=== PATIENT | male | born 1960 | race Caucasian/White ===

== ENCOUNTER 2025-05-09 13:30 | Outpatient (AMB) | payer BC, SELFPAY ==
--- OUTSIDE RECORDS SUMMARY | 2025-01-30 12:00 | XMS_ITS ---
Author Organization [facility] Address [address] [place], [place] [id number] Care Team Providers Care Automatic Data Processing Planner Name Role Phone KARICLEOPATRA FAUST Primary Care Provider [phone] REASON FOR VISIT Next Steps Encounters Encounter Location Date Provider Diagnosis [facility] [address] [place] [address] 01/30/2025 CLEOPATRA PIERCE Forgetfulness R68.89 and Word finding difficulty R47.89 ASSESSMENTS Encounter Date Diagnosis Assessment Notes Treatment Notes Treatment Clinical Notes Section Notes 01/30/2025 Forgetfulness (ICD-10 - R68.89) 01/30/2025 Word finding difficulty (ICD-10 - R47.89) PLAN OF TREATMENT Next Appt Details Provider Name:CLEOPATRA KEENANAN, 05/14/2025 10:40:00 AM, [address] [place], [address],
--- OUTSIDE RECORDS SUMMARY | 2025-02-23 07:58 | XMS_ITS ---
Author Organization [facility] Address [address] [place], [place] [phone] Care Team Providers Care Catalyst Recovery Operator Name Role Phone KARI CLEOPATRA Primary Care Provider REASON FOR VISIT Medication Request MEDICATIONS Medication SIG (Take, Route, Frequency, Duration) Notes Start Date End Date Status QUEtiapine Fumarate 25 MG 1 tablet at be dtime Orally Once a day for 30 day(s) 02/23/2025 Active PROBLEMS Problem Type ICD Code Onset Dates Problem Status W/U Status Risk SNOMED Code Notes Problem Other insomnia (G47.09) Active confirmed [id number] Encounters Encounter Location Date Provider Diagnosis [address] [address] 02/23/2025 CLEOPATRA PIERCE Other insomnia G47.0 9 and Irritability R45.4 ASSESSMENTS Encounter Date Diagnosis Assessment Notes Treatment Notes Treatment Clinical Notes Section Notes 02/23/2025 Other insomnia (ICD-10 - G47.09) 02/23/2025 Irritability (ICD-10 - R45.4) PLAN OF TREATMENT Medication Medication Name Sig Start Date Stop Date Notes QUEtiapine Fumarate 25 MG 1 tablet at be dtime Orally Once a day for 30 day(s) 02/23/2025 Next Appt Details Provider Name:CLEOPATRA PIERCE, 05/14/2025 10:40:00 AM, [address] [place] [address], [phone],
--- OUTSIDE RECORDS SUMMARY | 2025-02-27 03:40 | XMS_ITS ---
Author Organization [facility] Address [address] [place], [place] [phone] Care Team Providers Care Silvering Department Supervisor Name Role Phone KARI, CLEOPATRA Primary Care Provider [phone] ALLERGIES No Known Allergies REASON FOR VISIT [...] Notes Problem Cerebrovascular disease (I67.9) Active confirmed 06328875 VITAL SIGNS Height 65 in 02/27/2025 Weight 176 lbs 02/27/2025 Blood pressure systolic 172 mm Hg 02/28/20 25 Blood pressure diastolic 90 mm Hg 025 BMI 29.28 kg/m2 02/27/2025 Encounters Encounter Location Date Provider Diagnosis [facility] [address] [place] [address] 02/27/2025 CLEOPATRA PIERCE Cerebrovascular dise ase I67.9 [...] Details Follow Up: 4 Weeks, Reason: Provider Name:CLEOPATRA KARI, 05/14/2025 10:40:00 AM, [address] [place], [address], History and Physical Notes * HPI (History [...]
--- OUTSIDE RECORDS SUMMARY | 2025-03-23 07:34 | XMS_ITS ---
Author Organization [facility] Address [address] [place] [phone] Care Team Providers Care Knot Bumper Name Role Phone CLEOPATRA PIERCE Primary Care Provider REASON FOR VISIT Appt RS'd Encounters Encounter Location Date Provider Diagnosis [facility] [address] [place] [address] 03/23/2025 CLEOPATRA PIERCE PLAN OF TREATMENT Next Appt Details Provider Name:CLEOPATRA PIERCE, 05/14/2025 10:40:00 AM, [address] [place], [address],
--- OUTSIDE RECORDS SUMMARY | 2025-03-27 03:40 | XMS_ITS ---
Author Organization [facility] Address [address] [place] [phone] Care Team Providers Care Special Effects Designer Name Role Phone CLEOPATRA PIERCE Primary Care Provider REASON FOR VISIT 36/4wk f/u Encounters Encounter Location Date Provider Diagnosis [address] [address] 03/27/2025 CLEOPATRA PIERCE PLAN OF TREATMENT Next Appt Details Provider Name:CLEOPATRA PIERCE, 05/14/2025 10:40:00 AM, [address] [place], [address],
--- OUTSIDE RECORDS SUMMARY | 2025-04-02 08:16 | XMS_ITS ---
Author Organization [facility] Address [address] [place] [phone] Care Team Providers Care Mill Attendant Name Role Phone CLEOPATRA PIERCE Primary Care Provider REASON FOR VISIT cognitive issues Encounters Encounter Location Date Provider Diagnosis [address] [address] 04/02/2025 CLEOPATRA PIERCE PLAN OF TREATMENT Next Appt Details Provider Name:CLEOPATRA PIERCE, 05/14/2025 10:40:00 AM, [address] [place], [address],
--- OUTSIDE RECORDS SUMMARY | 2025-04-05 09:44 | XMS_ITS ---
Author Organization [facility] Address [address] [place] [phone] Care Team Providers Care Retail Maintenance Technician Name Role Phone CLEOPATRA PIERCE Primary Care Provider [phone] REASON FOR VISIT Requesting Lab Orders/ Swollen Feet Encounters Encounter Location Date Provider Diagnosis [address] [address] 04/05/2025 CLEOPATRA PIERCE PLAN OF TREATMENT Next Appt Details Provider Name:CLEOPATRA PIERCE, 05/14/2025 10:40:00 AM, [address] [place], [address],
--- OUTSIDE RECORDS SUMMARY | 2025-04-09 05:40 | XMS_ITS ---
Author Organization [facility] Address [address] [place], [place] [phone] Care Team Providers Care Entry Level Recruiter Name Role Phone KARI, CLEOPATRA Primary Care Provider [phone] ANABEL LOPEZ Yessenia [phone] ALLERGIES No Known Allergies REASON FOR VISIT [...] Notes Problem Tinnitus, bilateral (H93.13) Active confirmed [id number] Problem Neuropathy (G62.9) Active confirmed 580619487 VITAL SIGNS Height 65 in 04/09/2025 Weight 178.4 lbs 04/09/2025 Blood pressure systolic 134 mm Hg 04/09/20 25 Blood pressure diastolic 84 mm Hg 025 BMI 29.68 kg/m2 04/09/2025 Encounters Encounter Location Date Provider Diagnosis [facility] [address] [place] [address] 04/09/2025 ANABEL JOHN History of sleep apnea [...] eval; [facility] 04/09/2025 Other I [...] as tolerated Tinnitus, bilateral advised to get [facility] ed audiology eval; [facility] Other I am seeing the pee ent under the supervision of the co-signing physician. The physician was available for consultation at the time of the office visit. Next Appt Details Follow Up: prn, Reason: Provider Name:CLEOPATRA PIERCE, 05/14/2025 10:40:00 AM, [address] [place], [address], History and Physical Notes * HPI (History [...]
--- OUTSIDE RECORDS SUMMARY | 2025-04-09 10:16 | XMS_ITS ---
Author Organization [facility] Address [address], [place] [id number] Care Team Providers Care Label Drier Name Role Phone CLEOPATRA PIERCE Primary Care Provider ANABEL LOPEZ [phone] REASON FOR VISIT home sleep study Encounters Encounter Location Date Provider Diagnosis [address] [address] 04/09/2025 ANABEL LOPEZ History of sleep apnea Z86.69 ASSESSMENTS Encounter Date Diagnosis Assessment Notes Treatment Notes Treatment Clinical Notes Section Notes 04/09/2025 History of sleep apnea (ICD-10 - Z86.69) PLAN OF TREATMENT Pending Test Test Name Order Date Sleep Study (Home) 04/09/2025 Next Appt Details Provider Name:CLEOPATRA PIERCE, 05/14/2025 10:40:00 AM, [address] [place] [address], [phone],
--- OUTSIDE RECORDS SUMMARY | 2025-04-10 11:58 | XMS_ITS ---
Author Organization [facility] Address [address] [place] [phone] Care Team Providers Care Chef Saucier Name Role Phone CLEOPATRA PIERCE Primary Care Provider REASON FOR VISIT f/u on letter Encounters Encounter Location Date Provider Diagnosis [facility] [address] [place] [phone] 04/10/2025 CLEOPATRA PIERCE PLAN OF TREATMENT Next Appt Details Provider Name:CLEOPATRA PIERCE, 05/14/2025 10:40:00 AM, [address] [place], [address],
--- NOTE | 2025-05-09 13:54 | MHC.OFFVIS ---
Intake Visit Reasons: Memory Loss/Forgetfullness Medication List - Last Reconciled 05/09/25 by Cody Pete MD amlodipine 5 mg PO DAILY gabapentin 100 mg PO BEDTIME lisinopril 10 mg PO DAILY metoprolol succinate ER 50 mg PO BID quetiapine 25 mg PO DAILY rosuvastatin 20 mg PO DAILY rosuvastatin 10 mg PO DAILY HPI Comments Details: This is a 65-year-old right-handed man who is here accompanied by his and his [id number]. For the last 6-12 months he has had significant cognitive decline and was let go from [employer] where he had worked for 35 years because of errors he had been making for about 6 months. In the last 6 months he has continued to deteriorate cognitively. He runs around the house sometimes watching TV mumbling and humming to himself. He can no longer use the remote control or the cell phone and gets easily confused. He forgets names of family members they are ages in relationship. He takes things out of the cupboard and puts them on the counter and remedies through the Fridge and leaves the kitchen Fridge door open leaves the sink on and sometimes the stove. He thinks that characters on television no real people. He called his sister his mother has increased confusion and sundowning at night and talks about his father that he is going to pick him up. The father passed with 13 years ago. He confuses the past and present. He puts food away in different locations in the house. He used to drink heavily but has cut down and he still smokes. He has a history of hypertension and hyperlipidemia. He also complains of 6 months trouble sleeping because of burning and painful feet. He is scheduled to see a internal control manager and is also scheduled for a sleep study for sleep apnea. The patient is unable to provide any useful information and appears to have fairly advanced dementia. [facility] Medical History (Updated 05/09/25 @ 14:18 by Cody Pete MD) Basal cell carcinoma Heart attack LELAND (obstructive sleep apnea) Hypercholesteremia Type 2 diabetes mellitus Iritis Insomnia Obesity HTN (hypertension) Family History (Updated 05/07/25 @ 14:42 by ELENA Snowden) Father Heart disease Mother Memory loss Sister Seizure Review of Systems Const Details: Significant cognitive decline, confusion disorientation sundowning loss of track of time. Burning sensation in both feet. Musc Reports tingling Neuro Reports confusion, Reports memory loss, Reports tingling and Reports paresthesias Psych Reports confusion and Reports memory loss Physical Exam Const General: confusion Orientation/consciousness: confusion Neuro Other: He is oriented to person only. He knows it is 2024 but was not sure if it was April or May. He does not know the day of the week. He could not accurately tell me what his 2 sons do or their ages. He thinks he is 53 years old instead of 65. He remembers his date of . He is unable to subtract 7 from 100. He is unable to imprint 3 objects successfully usually being able to do only 2. He has some perseveration. His 3 minute recall was 1/3. He is unable to draw a clock face. His MMS score is 15/30 Cranial nerves 2-12 are normal. Muscle tone and strength are normal reflexes hypoactive at the ankles plantar responses flexor. Some subjective sensory blunting in his feet. Gait and balance are normal. General: confusion Assessment & Plan Assessment & Plan (1) Peripheral neuropathy: Code(s): G62.9 - Polyneuropathy, unspecified Category: Medical (2) Alzheimer's disease: Code(s): G30.9 - Alzheimer's disease, unspecified; F02.80 - Dementia in other diseases classified elsewhere, unspecified severity, without behavioral disturbance, psychotic disturbance, mood disturbance, and anxiety Category: Medical Plan NCV lower extremities. EEG, Labs for dementia. Start Donepezil Orders: Orders NE nerve conduction velocity Today G62.9 - Polyneuropathy, unspecified NE electromyogram (EMG) Today G62.9 - Polyneuropathy, unspecified EEG Routine Today F02.80 - Dementia in other diseases classified elsewhere, unspecified severity, without behavioral disturbance, psychotic disturbance, mood disturbance, and anxiety, G30.9 - Alzheimer's disease, unspecified Vitamin B12 and Folate Today F02.80 - Dementia in other diseases classified elsewhere, unspecified severity, without behavioral disturbance, psychotic disturbance, mood disturbance, and anxiety, G30.9 - Alzheimer's disease, unspecified, G62.9 - Polyneuropathy, unspecified Basic Metabolic Panel Today F02.80 - Dementia in other diseases classified elsewhere, unspecified severity, without behavioral disturbance, psychotic disturbance, mood disturbance, and anxiety, G30.9 - Alzheimer's disease, unspecified, G62.9 - Polyneuropathy, unspecified TSH reflex Free T4 Today F02.80 - Dementia in other diseases classified elsewhere, unspecified severity, without behavioral disturbance, psychotic disturbance, mood disturbance, and anxiety, G30.9 - Alzheimer's disease, unspecified, G62.9 - Polyneuropathy, unspecified Medications: New donepezil 5 mg PO DAILY 30 tabs 4RF gabapentin 300 mg PO BEDTIME 30 caps 5RF Coding Level of Care Code New Pt Level 5 (50095) Diagnoses Peripheral neuropathy G62.9 Alzheimer's disease G30.9; F02.80
--- OUTSIDE RECORDS SUMMARY | 2025-05-09 19:09 | XMS_ITS | Clinical Summary ---
[facility] Organization [facility] Address [address] [place] [address] Care Team Providers Care Director Of Managed Care Name Role Phone Unavailable Primary Care Provider Unavailabl e Social History Tobacco Use Types Packs/Day Years Used Date Smoking Tobacco: Never Assessed Sex and Gender Information Value Date Recorded Sex Assigned at Not on file Gender Identity Not on file Sexual Orientation Not on file Plan of Treatment Not on file
--- OUTSIDE RECORDS SUMMARY | 2025-05-09 19:10 | XMS_ITS | Patient Health Record ---
Author Organization [facility] Address [address] [place], [place] [id number] Care Team Providers Care Pega Developer Name Role Phone CLEOPATRA PIERCE Primary Care Provider JOS LIM Unavailable [phone] ANABEL LOPEZ Unavailable [phone] ALLERGIES No Known Allergies REASON FOR REFERRAL Reason 64 yr old male with forgetfullness, word finding difficulty over past 5-6 month Diagnosis 1 Forgetfulness (R68.8 9) Diagnosis 2 Word finding difficu lty (R47.89) Referral Organization [facility] Referring Provider First Name CLEOPATRA Referring Provider Last Name KARI Referring Provider Speciality Internal M edicine Referred Provider GILDA BAILEY Referred Provider Specialty Neurology General Notes Karie SINGH Referrals 02/05/2025 03:40:42 PM > per 01/30/25 encounter > forgetfullness and word find issues x 5-6 mos neurology referral discuss and she will call for appt copy referral mailed , medical referral and notes have also been faxed to [phone], No Insurance Referral is needed as the patient is self pay, Karie SINGH Referrals 02/26/2025 10:41:16 AM > the patient now has BC, ID:[id number], Preferred Provider Organization ([facility]), referral faxed to [facility]OB[facility] at [phone] Referral Priority Urgent MEDICATIONS Medication SIG (Take, Route, Frequency, Duration) [...] day(s) 12/19/2024 Active QUEtiapine Fumarate 25 MG TAKE 1 TABLET BY MOUTH EVERY DAY AT BEDTIME FOR 30 DAYS for 30 Active Metoprolol Tartrate 50 MG 1 tablet with food Orally Twice a day for 30 day(s) 12/19/2024 Active IMMUNIZATIONS Vaccine Route Administration Date Status Comme nts Influenza, Fluzone QUAD, 3+ yrs, IM Intramuscular 04/01/2017 Administered SOCIAL HISTORY Tobacco Use: Social History Observation Description Date Details (start date - stop date) Former Smoker NA - NA Sex Assigned At : Social History Observation Description Sex Assigned At Unknown Smoking Question Answer Notes Are you a: former smoker Section Notes: h/o 1/2-1 ppd x 25 years; qu it 2007 h/o 1/2-1 ppd x 25 years; qu it 2007 h/o 1/2-1 ppd x 25 years; qu it 2007 h/o 1/2-1 ppd x 25 years; qu it 2007 h/o 1/2-1 ppd x 25 years; qu it 2007 h/o 1/2-1 ppd x 25 years; qu it 2007 h/o 1/2-1 ppd x 25 years; qu it 2007 h/o 1/2-1 ppd x 25 years; qu it 2007 h/o 1/2-1 ppd x 25 years; qu it 2007 h/o 1/2-1 ppd x 25 years; qu it 2007 h/o 1/2-1 ppd x 25 years; qu it 2007 h/o 1/2-1 ppd x 25 years; qu it 2007 PROBLEMS Problem Type ICD Code Onset Dates Problem Status W/U Status Risk SNOMED Code Notes Problem Diabetes mellitus type II (250.00) Active confirmed Diabetes me llitus type II (04804899) Problem HTN [Hypertension] (401.9) Active confirmed Essential hypertension (20299292) Problem Ischemic heart disease NOS (414.9) Active confirmed Ischemic heart disease (588995077) Problem Sleep apnea (786.09) Active confirmed S leep apnea (69882431) Problem Transaminasemia (790.4) Active confirmed Temporary loss of memory (finding) (072748250) Problem Hypercholesterolemia (272.0) Active confirmed Hypercholestero lemia (57871187) Problem OBESITY NOS (278.00) Active confirmed O besity (817038118) Problem ELBOW ENTHESOPATHY NOS (726.30) Active confirmed Enthesopathy of elbow region (91905856) Problem Insomnia (G47.00) Active confirmed 193 69996 Problem Vitamin D deficiency (E55.9) Active confirmed 69971871 Problem Hypercholesterolemia (E78.0) Active confirmed 26879110 Problem Nevus (D22.9) Active confirmed 43436458 Problem Obesity (E66.9) Active confirmed 756747 001 Problem Transaminasemia (R74.0) Active confirmed 716619625 Problem Paresthesia (R20.2) Active confirmed 91 712522 Problem LELAND (obstructive sleep apnea) (G47.33) Active confirmed 83466790 Problem Neuropathy (G62.9) Active confirmed 386 012036 Problem Type 2 diabetes mellitus with hyperglycemia (E11.65) Active confirmed 30811588 Problem Other insomnia (G47.09) Active confirmed 515982402 Problem Tinnitus, bilateral (H93.13) Active confirmed 1645341588045 Problem Coronary artery disease involving united [place] coronary artery of united [place] heart without angina pectoris (I25.10) Active confirmed 90030905 Problem Impotence (N52.9) Active confirmed 3978 94487 Problem Ischemic heart disease (I25.9) Active confirmed 574264451 Problem Macrocytosis (D75.89) Active confirmed 917324657 Problem Folic acid deficienc y (E53.8) Active confirmed 840454817 Problem Iritis (H20.9) Active confirmed 2945171 0 Problem SCCA (squamous cell carcinoma) of skin (C44.92) Active confirmed 331874079 Problem Cerebrovascular disease (I67.9) Active confirmed 03058617 Problem Erectile dysfunction , unspecified erectile dysfunction type (N52.9) Active confirmed 460689799 Problem Elevated cholesterol (E78.00) Active confirmed Pure hypercholesterolemia (979510593) Problem Elevated blood pressure reading with diagnosis of hypertension (I10) Active confirmed 24538699 VITAL SIGNS Blood pressure diastolic 84 mm Hg 04/09/2025 Height 65 in 04/09/2025 Blood pressure systolic 134 mm Hg 04/09/2025 Weight 178.4 lbs 04/09/2025 BMI 29.68 kg/m2 04/09/2025 Encounters Encounter Location Date Provider Diagnosis [place] [address] 11/09/[address] [facility] [address] [place], [place] [phone] 11/27/2024 CLEOPATRA PIERCE [place] [address] 11/28/2024 CLEOPATRA PIERCE [place] [address] 11/28/2024 CLEOPATRA PIERCE [place] [address] 12/19/2024 CLEOPATRA PIERCE Cognitive impairment R41.89 ; Screening for deficiency anemia Z13.0 ; Elevated blood pressure reading with diagnosis of hypertension I10 ; Coronary artery disease involving united [place] coronary artery of united [place] heart without angina pectoris I25.10 ; Abnormal EKG R94.31 and Noncompliance Z91.199 [place] [address] 01/01/2025 CLEOPATRA PIERCE [place] [address] 01/02/2025 CLEOPATRA PIERCE [place] [address] 01/25/2025 CLEOPATRA PIERCE [place] [address] 01/30/2025 CLEOPATRA PIERCE Forgetfulness R68.89 and Word finding difficulty R47.89 [address] 02/23/2025 CLEOPATRA PIERCE Other insomnia G47.0 9 and Irritability R45.[address] 02/27/2025 CLEOPATRA PIERCE Cerebrovascular disease I67.9 ; Irritability R45.4 ; Forgetfulness R68.89 and Elevated blood pressure reading with diagnosis of hypertension I10 [place] [phone] 03/23/2025 CLEOPATRA [facility] [address] [place] [address] 03/27/2025 CLEOPATRA PIERCE [facility] [address] [place] [address] 04/02/2025 CLEOPATRA PIERCE [facility] [address] 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 Z86.[address] [place] [address] 04/10/2025 CLEOPATRA PIERCE ASSESSMENTS Encounter Date Diagnosis Assessment Notes Treatment Notes Treatment Clinical Notes Section Notes 02/27/2025 Cerebrovascular disease (ICD-10 - I67.9) quetiapine seemed to help some 01/30/2025 Forgetfulness (ICD-10 - R68.89) 01/30/2025 Word finding difficulty (ICD-10 - R47.89) 12/19/2024 Screening for deficiency anemia (ICD-10 - Z13.0) not on his meds 12/19/2024 Cognitive impairment (ICD-10 - R41.89) not on his meds 04/09/2025 History of sleep apnea (ICD-10 - Z86.69) 04/09/2025 History of sleep apnea (ICD-10 - Z86.69) he hasnt had an updated sleep study which i advised given pts h/o cogntive decline. 04/09/2025 Neuropathy (ICD-10 - G62.9) will try adding gabapentin at bedtime; monitor for side effects/respons e and titrate dose as tolerated 02/27/2025 Irritability (ICD-10 - R45.4) continues quetiapine 1-2 at night and will update me in a week quetiapine seemed to help some 02/23/2025 Other insomnia (ICD-10 - G47.09) 02/23/2025 Irritability (ICD-10 - R45.4) 02/27/2025 Forgetfulness (ICD-10 - R68.89) he will be seein neurologyin Octob quetiapine seemed to help some 12/19/2024 Elevated blood pressure reading with diagnosis of hypertension (ICD-10 - I10) not on his meds 04/09/2025 Tinnitus, bilateral (ICD-10 - H93.13) advised to get updated audiology eval; he is going to go to [facility] to have this done 02/27/2025 Elevated blood pressure reading with diagnosis of hypertension (ICD-10 - I10) continue lisinopril 10mg/d and 2 BPs at [facility] in a week quetiapine seemed to help some 12/19/2024 Coronary artery disease involving united [place] coronary artery of united [place] heart without angina pectoris (ICD-10 - I25.10) not on his meds 12/19/2024 Abnormal EKG (ICD-10 - R94.31) not on his meds 12/19/2024 Noncompliance (ICD-10 - Z91.199) not on his meds 04/09/2025 Other I am seeing the patient under the supervision of the co-signing physician. The physician was available for consultation at the time of the office visit. PLAN OF TREATMENT Pending Test Test Name Order Date Sleep Study (Home) 04/09/2025 TESTOSTERONE,TOTAL(Male greater than 15Y RS (BRL) 05/27/2020 Future Test Test Name Order Date LIPID PROFILE 03/19/2016 GLYCOHEMOGLOBIN (HBA1C) 03/19/2016 FOLATE 03/19/2016 COMP. METABOLIC 03/19/2016 LIPID PROFILE 04/01/2017 GLYCOHEMOGLOBIN (HBA1C) 04/01/2017 COMP. METABOLIC 04/01/2017 Urine Microalbumin(Creat/MALB Ratio) Next Appt Details Provider Name:CLEOPATRA PIERCE, 05/14/2025 10:40:00 AM, [address] [place], [address], Insurance Providers Payer Name Payer Address Payer Phone Subscriber Number Group Number Insured Name Patient Relationship to Insured Coverage Start Date Coverage End Date [facility] [address] [place] [address] [id number] FRANCO HARRISON Self - patient is the insured 5 MEDICAL (GENERAL) HISTORY Medical History History ICD Code hypertension obesity insomnia iritis diabetes mellitus, type 2 hypercholesterolemia [place] [facility] 11/01/11 right SCCA Surgical History Surgery Date(Month/Year) Basal Cell Carcinoma 02/2019 Hospitalization History Reason Date(Month/Year) [facility] Dx: Hypoglycemia Nausea Decreased ap petite 06/17/16 myocardial infarct - [facility] [place] 08/05/2009 chest pain s/p stent x 2 for [facility] 11/01/11
--- OUTSIDE RECORDS SUMMARY | 2025-05-09 19:11 | XMS_ITS | Clinical Summary ---
Author Organization [facility] it Address [address] [place] [address] Care Team Providers Care Postmaster Name Role Phone Unavailable Primary Care Provider Unavailabl e Social History Tobacco Use Types Packs/Day Years Used Date Smoking Tobacco: Never Assessed Sex and Gender Information Value Date Recorded Sex Assigned at Not on file Legal Sex Male 8:26 PM EST Gender Identity Not on file Sexual Orientation Not on file Plan of Treatment Health Maintenance Due Date Last Done Comments Colorectal Cancer Screening: Colonoscopy 1961 DTaP,Tdap,and Td Vaccines (1 - Tdap) 1980 Pneumococcal Vaccine: 50+ Ye ars (1 of 1 - PCV) 2011 Zoster Vaccines (1 of 2) 2011 Cholesterol Screening (Lipid Panel) 08/13/2023 HIV Screening 08/13/2023 Hepatitis C Screening 08/13/2023 Social Influencers of Health Screening 08/13/2023 Depression Screening 07/19/2024 COVID-19 Vaccine (1 - 2023-2 5 season) 2025 Influenza Vaccine (#1) 2025 RSV Immunization Adult Patie nts (1 - 1-dose 75+ series) 2036 HIB Vaccines Aged Out No longer eligi ble based on patient's age to complete this topic HPV Vaccines Aged Out No longer eligi ble based on patient's age to complete this topic Hepatitis A Vaccines Aged Out No long er eligible based on patient's age to complete this topic Hepatitis B Vaccines Aged Out No long er eligible based on patient's age to complete this topic IPV Vaccines Aged Out No longer eligi ble based on patient's age to complete this topic MMR Vaccines Aged Out No longer eligi ble based on patient's age to complete this topic Meningococcal ACWY Vaccine Aged Out N o longer eligible based on patient's age to complete this topic Meningococcal B Vaccine Aged Out No l onger eligible based on patient's age to complete this topic RSV Immunization Patients Un rasheed 20 months Aged Out No longer eligible b ased on patient's age to complete this topic Varicella Vaccines Aged Out No longer eligible based on patient's age to complete this topic
== END 2025-05-09 14:38 | disposition home or self-care (01) ==
PROVIDERS: PCP Internal Medicine; Visit Provider Psychiatry & Neurology Neurology
DX: G62.9 Polyneuropathy, unspecified (principal); G30.9 Alzheimer's disease, unspecified; F02.80 Dementia in other diseases classified elsewhere, unspecified severity, without behavioral disturbance, psychotic disturbance, mood disturbance, and anxiety
CPT/HCPCS: 99204

== ENCOUNTER 2025-05-09 14:45 | Outpatient (REF) | payer BC, SELFPAY ==
[2025-05-09 16:05] LABS: Anion Gap 11 (12-20); Blood Urea Nitrogen 20 mg/dL (9-16); Calcium 9.5 mg/dL (8.4-10.2); Carbon Dioxide 25 mmol/L (22-29); Chloride 109 mmol/L (96-108); Estimated Glomerular Filt Rate 59; Potassium 4.0 mmol/L (3.3-5.1); Sodium 141 mmol/L (135-145)
[2025-05-09 16:42] LABS: Folate 7.3 ng/mL (> or = 4.0); Vitamin B12 307 pg/mL (200-900)
== END 2025-05-09 14:46 | disposition home or self-care (01) ==
LOC: HO.NEURO 14:45
PROVIDERS: PCP Internal Medicine; Visit Provider Psychiatry & Neurology Neurology
DX: G30.9 Alzheimer's disease, unspecified (principal); F02.80 Dementia in other diseases classified elsewhere, unspecified severity, without behavioral disturbance, psychotic disturbance, mood disturbance, and anxiety; G62.9 Polyneuropathy, unspecified
CPT/HCPCS: 36415; 80048; 82607; 82746; 84443

== ENCOUNTER 2025-06-05 14:26 | Outpatient (REF) | payer BC, SELFPAY ==
--- OUTSIDE RECORDS SUMMARY | 2025-02-27 02:40 | XMS_ITS ---
Author Organization [employer] [facility] Address [address] [place], [place] [phone] Care Team Providers Care Oysterman Name Role Phone KARI, CLEOPATRA Primary Care Provider ALLERGIES No Known Allergies REASON FOR VISIT [...] Notes Problem Cerebrovascular disease (I67.9) Active confirmed 03979827 VITAL SIGNS Height 65 in 02/27/2025 Weight 176 lbs 02/27/2025 Blood pressure systolic 172 mm Hg 02/28/20 25 Blood pressure diastolic 90 mm Hg 025 BMI 29.28 kg/m2 02/27/2025 Encounters Encounter Location Date Provider Diagnosis [facility] [address] [place] [address] 02/27/2025 CLEOPATRA PIERCE Cerebrovascular dise ase I67.9 [...] Follow Up: 4 Weeks, Reason: Provider Name:ANABEL PERSAUD, 06/29/2025 09:40:00 AM, [address] [place], [address], History and Physical Notes * HPI (History [...]
--- OUTSIDE RECORDS SUMMARY | 2025-03-23 06:34 | XMS_ITS ---
Author Organization [facility] Address [address] [place] [phone] Care Team Providers Care Parts Specialist Name Role Phone CLEOPATRA PIERCE Primary Care Provider REASON FOR VISIT Appt RS'd Encounters Encounter Location Date Provider Diagnosis [facility] [address] [place] [phone] 03/23/2025 CLEOPATRA PIERCE PLAN OF TREATMENT Next Appt Details Provider Name:ANABEL PERSAUD, 06/29/2025 09:40:00 AM, [address] [place], [address],
--- OUTSIDE RECORDS SUMMARY | 2025-03-27 02:40 | XMS_ITS ---
Author Organization [facility] Address [address] [place] [phone] Care Team Providers Care Intranet Specialist Name Role Phone CLEOPATRA PIERCE Primary Care Provider REASON FOR VISIT 36/4wk f/u Encounters Encounter Location Date Provider Diagnosis [address] [address] 03/27/2025 CLEOPATRA PIERCE PLAN OF TREATMENT Next Appt Details Provider Name:ANABEL PERSAUD, 06/29/2025 09:40:00 AM, [address] [place], [address],
--- OUTSIDE RECORDS SUMMARY | 2025-04-02 07:16 | XMS_ITS ---
Author Organization [facility] Address [address] [place] [phone] Care Team Providers Care Recruiting Internship Name Role Phone CLEOPATRA PIERCE Primary Care Provider [phone] REASON FOR VISIT cognitive issues Encounters Encounter Location Date Provider Diagnosis [address] [address] 04/02/2025 CLEOPATRA PIERCE PLAN OF TREATMENT Next Appt Details Provider Name:ANABEL PERSAUD, 06/29/2025 09:40:00 AM, [address] [place], [address],
--- OUTSIDE RECORDS SUMMARY | 2025-04-05 08:44 | XMS_ITS ---
Author Organization [facility] Address [address] [place] [phone] Care Team Providers Care Irrigation Pump Installer Name Role Phone CLEOPATRA PIERCE Primary Care Provider REASON FOR VISIT Requesting Lab Orders/ Swollen Feet Encounters Encounter Location Date Provider Diagnosis [address] [address] 04/05/2025 CLEOPATRA PIERCE PLAN OF TREATMENT Next Appt Details Provider Name:ANABEL PERSAUD, 06/29/2025 09:40:00 AM, [address] [place], [address],
--- OUTSIDE RECORDS SUMMARY | 2025-04-09 04:40 | XMS_ITS ---
Author Organization [facility] Address [address] [place], [place] [phone] Care Team Providers Care Slag Motor Operator Name Role Phone KARI, CLEOPATRA Primary Care Provider ANABEL LOPEZ Yessenia [phone] ALLERGIES No Known Allergies REASON FOR VISIT JW/36/ SWOLLEN FEET MEDICATIONS Medication SIG (Take, Route, Frequency, Duration) Notes Start Date End Date Status Rosuvastatin Calcium 10 MG 1 tablet Oral ly Once a day for 90 day(s) 02/27/2025 Active Gabapentin 100 MG 1 capsule at bedtime Orally Once a day for 30 day(s) 04/09/2025 Active amLODIPine Besylate 5 MG 1 tablet Orally Once a day for 30 day(s) 02/27/2025 Active Lisinopril 10 MG 1 tablet Orally Once a day for 30 day(s) 12/19/2024 Active QUEtiapine Fumarate 25 MG 1 tablet at be dtime Orally Once a day for 30 day(s) 02/23/2025 Active Metoprolol Tartrate 50 MG 1 tablet with food Orally Twice a day for 30 day(s) 12/19/2024 Active SOCIAL HISTORY Tobacco Use: Social History Observation Description Date Details (start date - stop date) Former Smoker NA - NA Sex Assigned At : Social History Observation Description Sex Assigned At Unknown Smoking Question Answer Notes Are you a: former smoker Section Notes: h/o 1/2-1 ppd x 25 years; qu it 2006 PROBLEMS Problem Type ICD Code Onset Dates Problem Status W/U Status Risk SNOMED Code Notes Problem Tinnitus, bilateral (H93.13) Active confirmed [id number] Problem Neuropathy (G62.9) Active confirmed 963158180 VITAL SIGNS Height 65 in 04/09/2025 Weight 178.4 lbs 04/09/2025 Blood pressure systolic 134 mm Hg 04/09/20 25 Blood pressure diastolic 84 mm Hg 025 BMI 29.68 kg/m2 04/09/2025 Encounters Encounter Location Date Provider Diagnosis [facility] [address] [place] [address] 04/09/2025 ANABEL JOHN History of sleep apnea Z86.69 ; Neuropathy G62.9 and Tinnitus, bilateral H93.13 ASSESSMENTS Encounter Date Diagnosis Assessment Notes Treatment Notes Treatment Clinical Notes Section Notes 04/09/2025 History of sleep apnea (ICD-10 - Z86.69) he hasnt had an updated sleep study which i advised given pts h/o cogntive decline. 04/09/2025 Neuropathy (ICD-10 - G62.9) will try adding gabapentin at bedtime; monitor for side effects/response and titrate dose as tolerated 04/09/2025 Tinnitus, bilateral (ICD-10 - H93.13) advised to get updated audiology eval; he is going to go to [facility] to have this done 04/09/2025 Other I am seeing the patient under the supervision of the co-signing physician. The physician was available for consultation at the time of the office visit. PLAN OF TREATMENT Medication Medication Name Sig Start Date Stop Date Notes Gabapentin 100 MG 1 capsule at bedtime Orally Once a day for 30 day(s) 04/09/2025 Treatment Notes Assessment Notes History of sleep apnea he hasnt had an u pdated sleep study which i advised given pts h/o cogntive decline. Neuropathy will try adding john pentin at bedtime; monitor for side effects/response and titrate dose as tolerated Tinnitus, bilateral advised to get [facility] ed audiology eval; he is going to go to [facility] to have this done Other I am seeing the pee ent under the supervision of the co-signing physician. The physician was available for consultation at the time of the office visit. Next Appt Details Follow Up: prn, Reason: Provider Name:ANABEL PERSAUD, 06/29/2025 09:40:00 AM, [address] [place], [address], History and Physical Notes * HPI (History of Present Illness) Category Sub-Category Detail Notes Category Not es General Pt here with br other in law today with mutliple concerns. Pt has a h/o pain in feet and ankles due to neuropathy and difficulty going and and down stairs for th last 6-8 months. He has not had any falls. He is asking if there is medication he can take. He also mentions needing to have bloodwork today that his provider wanted but there are no orders in the system. His sugar was 130 at last check and wanted A1C done. Also pts brohter in law is asking for a referral to a podaitrist to help with his nail care. He has a h/o chronic tinnitus. He hasnt had a hearing eval. He does have memory loss which has been chronic and worsening. He is seeing Dr Foss next month. Physical Examination Category Sub-Category Detail Notes Section Note s EXTREMITIES Edema: none Cyanosis: none Pulses: 2+ bilateral CHEST Shape and expansion: normal Breath sounds: clear to auscultatio n Rales: none Wheezes: none rubs no HEART Rhythm: regular Murmurs: none Heart sounds: Normal S1 & S2, no S 3/S4 Clicks: none Rubs: none Rate: regular NEUROLOGICAL Sensory: diminished sensation lower l egs Gait: normal GENERAL General Appearance: well nourish ed, no apparent distress, well developed
--- OUTSIDE RECORDS SUMMARY | 2025-04-09 09:16 | XMS_ITS ---
Author Organization [facility] Address [address], [place] [id number] Care Team Providers Care Account Manager Sales Representative Name Role Phone KARI, CLEOPATRA Primary Care Provider ANABEL LOPEZ [phone] REASON FOR VISIT home sleep study Encounters Encounter Location Date Provider Diagnosis [facility] [address] [place] [address] 04/09/2025 ANABEL LOPEZ History of sleep apnea Z86.69 ASSESSMENTS Encounter Date Diagnosis Assessment Notes Treatment Notes Treatment Clinical Notes Section Notes 04/09/2025 History of sleep apnea (ICD-10 - Z86.69) PLAN OF TREATMENT Pending Test Test Name Order Date Sleep Study (Home) 04/09/2025 Next Appt Details Provider Name:ANABEL PERSAUD, 06/29/2025 09:40:00 AM, [address] [place], [address],
--- OUTSIDE RECORDS SUMMARY | 2025-04-10 10:58 | XMS_ITS ---
Author Organization [facility] Address [address] [place] [phone] Care Team Providers Care Drone Operator Name Role Phone CLEOPATRA PIERCE Primary Care Provider REASON FOR VISIT f/u on letter Encounters Encounter Location Date Provider Diagnosis [facility] [address] [place] [address] 04/10/2025 CLEOPATRA PIERCE PLAN OF TREATMENT Next Appt Details Provider Name:ANABEL PERSAUD, 06/29/2025 09:40:00 AM, [address] [place], [address],
--- OUTSIDE RECORDS SUMMARY | 2025-05-14 05:40 | XMS_ITS ---
Author Organization [facility] Address [address] [place], [place] [id number] Care Team Providers Care Marketing Project Lead Name Role Phone KARI, CLEOPATRA Primary Care Provider [phone] REASON FOR VISIT 4 wk follow up [...] disease with early onset (G30.0) Active confirmed 94909565 Problem Dementia in other diseases classified elsewhere, moderate, without behavioral disturbance, psychotic disturbance, mood disturbance, and anxiety (F02.B0) Active confirmed 253764812 Problem History of alcohol abuse (F10.11) Active confirmed 9633271224 VITAL SIGNS Height 65 in 05/14/2025 Weight 178.5 lbs 05/14/2025 Blood pressure systolic 120 mm Hg 05/14/20 25 Blood pressure diastolic 78 mm Hg 025 BMI 29.70 kg/m2 05/14/2025 Encounters Encounter Location Date Provider Diagnosis [facility] [address] [place] [address] 05/14/2025 CLEOPATRA PIERCE Alzheimer's disease with early [...] F10.11) advised to stop drinking; we discussed savfernando and camila; given referral copy form to [facility] substance abuse [facility] with their contact office information/ w e [...] and adcare; given referral copy form to [facility] substance abuse [facility] with their contact office information/ w e will fax this not and the nurology note and also the brain imaging reports with the referral to [facility]. Next Appt Details Follow Up: 6 Weeks Zina Bartholomewn: Provider Name:ANABEL PERSAUD, 06/29/2025 09:40:00 AM, [address] [facility], [place], [address], History and Physical Notes * HPI (History [...] r 2027May . Town he lives in [place] . States he is in [place] now. EXTREMITIES Edema: none yr 2027 [facility] May . Town he lives in [place] . States he is in [place] now. CHEST Breath sounds: clear to auscultation 2027May . Town he lives in [place] . States he is in [place] now. HEART Rhythm: regular 2027 [facility] May . Town he lives in [place] . States he is in [place] now. NEUROLOGICAL Motor: 5/5 strength pro ximally and distally in all 4 extremities 2027May . Town he lives in [place] . States he is in [place] now. Gait: normal, get on off t able readily when instructed Mental status: Alert and oriented t o person, place, , His brother Junior with him Cerebellar: stedy Speech normal GENERAL General Appearance: well nourish ed, no apparent distress, well developed yr 2027May . Town he lives in [place] . States he is in [place] now.
--- OUTSIDE RECORDS SUMMARY | 2025-05-14 11:23 | XMS_ITS ---
Author Organization [facility] Address [address] [place] [id number] Care Team Providers Care Coil Taper Name Role Phone CLEOPATRA PIERCE Primary Care Provider [phone] REASON FOR VISIT pt declined services Encounters Encounter Location Date Provider Diagnosis [facility] [address] [place] [address] 05/14/2025 CLEOPATRA PIERCE PLAN OF TREATMENT Next Appt Details Provider Name:ANABEL PERSAUD, 06/29/2025 09:40:00 AM, [address] [place], [address],
--- NOTE | 2025-06-05 15:21 | EMG_ITS ---
Chief complaint:?Pain and numbness lower extremity Reason for referral: G62.9 Polyneuropathy, unspecified Referred by:?Dr Pete Procedure done: Bilateral lower extremities NCS/EMG Impression: [id number] sensory axonal loss in the lower extremities with borderline slow motor nerve conductions suggestive of early, predominantly sensory peripheral neuropathy. EMG of the left L4-S1 innervated muscles consistent with mild chronic distal neuropathic change in in the EDB muscle. Please see detailed neurophysiological report Codin [id number] 1 extremity MTDD
--- OUTSIDE RECORDS SUMMARY | 2025-06-06 11:37 | XMS_ITS | Clinical Summary ---
Author Organization [facility] Address [address] [place] [address] Care Team Providers Care Tape Making Machine Operator Name Role Phone Unavailable Primary Care Provider Unavailabl e Social History Tobacco Use Types Packs/Day Years Used Date Smoking Tobacco: Never Assessed Sex and Gender Information Value Date Recorded Sex Assigned at Not on file Gender Identity Not on file Sexual Orientation Not on file Plan of Treatment Not on file
--- OUTSIDE RECORDS SUMMARY | 2025-06-06 11:40 | XMS_ITS | Patient Health Record ---
Author Organization [facility] Address [address] [place], [place] [id number] Care Team Providers Care Closing Supervisor Name Role Phone CLEOPATRA PIERCE Primary Care Provider JOS LIM Unavailable [phone] ANABEL LOPEZ Unavailable [phone] ALLERGIES No Known Allergies REASON FOR REFERRAL Reason 64 yr old male with forgetfullness, word finding difficulty over past 5-6 month Diagnosis 1 Forgetfulness (R68.8 9) Diagnosis 2 Word finding difficu lty (R47.89) Referral Organization [facility] Referring Provider First Name CLEOPATRA Referring Provider [...] and notes have also been faxed to [phone], No Insurance Referral is needed as the patient is self pay, Karie SINGH Referrals 02/26/2025 10:41:16 AM > the patient now has BC, ID:[id number], Preferred Provider Organization ([facility]), referral faxed to [facility] at [phone] Referral Priority Urgent Reason 65 yr old male with hx alcohol abuse an early dementia Please see Diagnosis 1 Alcohol abuse (F10.1 0) Referral Organization [facility] Referring Provider First Name CLEOPATRA Referring Provider Last Name KARI Referring Provider Speciality Internal M edicine General Notes CLEOPATRA PIERCE 2024 11:01:24 AM > JAZIO [place], [place] Referral Priority Routine MEDICATIONS Medication SIG (Take, Route, Frequency, Duration) [...] ppd x 25 years; qu it 2006 h/o 1/2-1 ppd x 25 years; qu [...] Active confirmed Diabetes me llitus type II (17258722) Problem HTN [Hypertension] (401.9) Active confirmed Essential hypertension (23201327) Problem Ischemic heart disease NOS (414.9) Active confirmed Ischemic heart disease (253175971) Problem Sleep apnea (786.09) Active confirmed S leep apnea (58213034) Problem Transaminasemia (790.4) Active confirmed Temporary loss of memory (finding) (034158318) Problem Hypercholesterolemia (272.0) Active confirmed Hypercholestero lemia (99332225) Problem OBESITY NOS (278.00) Active confirmed O besity (930460058) Problem ELBOW ENTHESOPATHY NOS (726.30) Active confirmed Enthesopathy of elbow region (15099955) Problem Insomnia (G47.00) Active confirmed 193 63004 Problem Vitamin D deficiency (E55.9) Active confirmed 16698630 Problem Hypercholesterolemia (E78.0) Active confirmed 88912407 Problem Nevus (D22.9) Active confirmed 59286805 Problem Obesity (E66.9) Active confirmed 351464 001 Problem Transaminasemia (R74.0) Active confirmed 557831415 Problem Paresthesia (R20.2) Active confirmed 91 561242 Problem LELAND (obstructive sleep apnea) (G47.33) Active confirmed 55716906 Problem Alcohol abuse (F10.10) Active confirmed 67890502 Problem Neuropathy (G62.9) Active confirmed 386 639242 Problem Type 2 diabetes mellitus with hyperglycemia (E11.65) Active confirmed 71738208 Problem Alzheimer's disease with early onset (G30.0) Active confirmed 11593746 Problem Other insomnia (G47.09) Active confirmed 673957013 Problem Tinnitus, bilateral (H93.13) Active confirmed 2441220023174 Problem Coronary artery disease involving gulkana coronary artery of gulkana heart without angina pectoris (I25.10) Active confirmed 60491344 Problem Impotence (N52.9) Active confirmed 3978 28554 Problem Ischemic heart disease (I25.9) Active confirmed 216473897 Problem Macrocytosis (D75.89) Active confirmed 782939321 Problem Folic acid deficienc y (E53.8) Active confirmed 028162512 Problem Iritis (H20.9) Active confirmed 8820823 0 Problem SCCA (squamous cell carcinoma) of skin (C44.92) Active confirmed 813805987 Problem Cerebrovascular disease (I67.9) Active confirmed 90930860 Problem Erectile dysfunction , unspecified erectile dysfunction type (N52.9) Active confirmed 716924071 Problem Elevated cholesterol (E78.00) Active confirmed Pure hypercholesterolemia (758198318) Problem Elevated blood pressure reading with diagnosis of hypertension (I10) Active confirmed 89667923 Problem History of alcohol abuse (F10.11) Active confirmed 5928328383 Problem Dementia in other diseases classified elsewhere, moderate, without behavioral disturbance, psychotic disturbance, mood disturbance, and anxiety (F02.B0) Active confirmed 058365865 VITAL SIGNS Blood pressure diastolic 78 mm Hg 05/14/2025 Height 65 in 05/14/2025 Blood pressure systolic 120 mm Hg 05/14/2025 Weight 178.5 lbs 05/14/2025 BMI 29.70 kg/m2 05/14/2025 Encounters Encounter Location Date Provider Diagnosis [address] [address] 11/09/2024 JOS LIM [place] [phone] 11/27/2024 CLEOPATRA PIERCE [place] [phone] 11/28/2024 CLEOPATRA PIERCE [address] [address] 11/28/2024 CLEOPATRA PIERCE [place] [phone] 12/19/2024 CLEOPATRA PIERCE Cognitive impairment R41.89 ; Screening for deficiency anemia Z13.0 ; Elevated blood pressure reading with diagnosis of hypertension I10 ; Coronary artery disease involving gulkana coronary artery of gulkana heart without angina pectoris I25.10 ; Abnormal EKG R94.31 and Noncompliance Z91.[address] [address] 01/01/2025 CLEOPATRA PIERCE [address] [address] 01/02/2025 CLEOPATRA PIERCE [facility] [address] [place] [phone] 01/25/2025 CLEOPATRA PIERCE [facility] [address] [place] [address] 01/30/2025 CLEOPATRA PIERCE Forgetfulness R68.89 and Word finding difficulty R47.89 [facility] [address] [place] [address] 02/23/2025 CLEOPATRA PIERCE Other insomnia G47.0 9 and Irritability R45.4 [facility] [address] [place] [address] 02/27/2025 CLEOPATRA PIERCE Cerebrovascular disease I67.9 ; Irritability R45.4 ; Forgetfulness R68.89 and Elevated blood pressure reading with diagnosis of hypertension I10 [facility] [address] [place], [place] [phone] 03/23/2025 CLEOPATRA PIERCE [facility] [address] [place], [place] [phone] 03/27/2025 CLEOPATRA PIERCE [facility] [address] [place] [address] 04/02/2025 CLEOPATRA PIERCE [facility] [address] [place], [place] [phone] 04/05/2025 CLEOPATRA PIERCE [facility] [address] [place], [place] [phone] 04/09/2025 ANABEL LOPEZ 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 ; Neuropathy G62.9 and Tinnitus, bilateral H93.13 [facility] [address] [place], [place] [phone] 04/09/2025 ANABEL LOPEZ 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 [facility] [address] [place], [place] [phone] 04/10/2025 CLEOPATRA PIERCE [facility] [place] [phone] 05/14/2025 CLEOPATRA PIERCE Alzheimer's disease with early onset G30.0 ; Dementia in other diseases classified elsewhere, moderate, without behavioral disturbance, psychotic disturbance, mood disturbance, and anxiety F02.B0 and History of alcohol abuse F10.11 [facility] [address] [place] [address] 05/14/2025 CLEOPATRA PIERCE ASSESSMENTS Encounter Date Diagnosis Assessment Notes Treatment Notes Treatment Clinical Notes Section Notes 12/19/2024 Cognitive impairment (ICD-10 - R41.89) not on his meds 12/19/2024 Screening for deficiency anemia (ICD-10 - Z13.0) not on his meds 01/30/2025 Word finding difficulty (ICD-10 - R47.89) 01/30/2025 Forgetfulness (ICD-10 - R68.89) 02/27/2025 Cerebrovascular disease (ICD-10 - I67.9) quetiapine seemed to help some 02/27/2025 Irritability (ICD-10 - R45.4) continues quetiapine 1-2 at night and will update me in a week quetiapine seemed to help some 02/23/2025 Other insomnia (ICD-10 - G47.09) 02/23/2025 Irritability (ICD-10 - R45.4) 05/14/2025 Alzheimer's disease with early onset (ICD-10 [...] quetiapine but needs to stop drinking alcohol 04/09/2025 Neuropathy (ICD-10 - G62.9) will try adding gabapentin at bedtime; monitor for side effects/respons e and titrate dose as tolerated 04/09/2025 History of sleep apnea (ICD-10 - Z86.69) he hasnt had an updated sleep study which i advised given pts h/o cogntive decline. 04/09/2025 History of sleep apnea (ICD-10 - Z86.69) 05/14/2025 History of alcohol abuse (ICD-10 - F10.11) advised to stop drinking; we discussed adonay and camila; given referral copy form to [facility] with their contact office information/ w e will fax this not and the nurology note and also the brain imaging reports with the referral to [facility]. seems to be doing better on quetiapine but needs to stop drinking alcohol 02/27/2025 Forgetfulness (ICD-10 - R68.89) he will be seein neurologyin Octob quetiapine seemed to help some 04/09/2025 Tinnitus, bilateral (ICD-10 - H93.13) advised to get updated audiology eval; he is going to go to [facility] to have this done 12/19/2024 Elevated blood pressure reading with diagnosis of hypertension (ICD-10 - I10) not on his meds 02/27/2025 Elevated blood pressure reading with diagnosis of hypertension (ICD-10 - I10) continue lisinopril 10mg/d and 2 BPs [facility] in a week quetiapine seemed to help some 12/19/2024 Coronary artery disease involving gulkana coronary artery of gulkana heart without angina pectoris (ICD-10 - I25.10) [...] Urine Microalbumin(Creat/MALB Ratio) Next Appt Details Provider Name:ANABEL CORMIER HUNG, 06/29/2025 09:40:00 AM, [address] [place], [address], Insurance Providers Payer Name Payer Address Payer Phone Subscriber Number Group Number Insured Name Patient Relationship to Insured Coverage Start Date Coverage End Date [employer] [address] [place] [address] [phone] [id number] FRANCO HARRISON Self - patient is the insured 5 MEDICAL (GENERAL) HISTORY Medical History History ICD Code hypertension obesity insomnia iritis diabetes mellitus, type 2 hypercholesterolemia [place] [facility] 11/01/11 right SCCA Dementia Alzheimers Surgical History Surgery Date(Month/Year) Basal Cell Carcinoma 02/2019 Hospitalization History Reason Date(Month/Year) myocardial infarct - [facility] 08/05/2009 chest pain s/p stent x 2 for [place] 11/01/11 [facility] Dx: Hypoglycemia Nausea Decreased ap petite 06/17/16
--- OUTSIDE RECORDS SUMMARY | 2025-06-06 11:40 | XMS_ITS | Clinical Summary ---
Author Organization [facility] Address [address] [place] [address] Care Team Providers Care Community Planner Name Role Phone Unavailable Primary Care Provider [...] Depression Screening 07/19/2024 COVID-19 Vaccine (1 - 2024-2 6 season) 2025 Influenza Vaccine (#1) 2025 RSV [...]
== END 2025-06-05 14:27 | disposition home or self-care (01) ==
LOC: HO.NEURO 14:26
PROVIDERS: PCP Internal Medicine; Visit Provider Psychiatry & Neurology Neurology
DX: R20.0 Anesthesia of skin (principal); G30.9 Alzheimer's disease, unspecified; F02.80 Dementia in other diseases classified elsewhere, unspecified severity, without behavioral disturbance, psychotic disturbance, mood disturbance, and anxiety; G62.9 Polyneuropathy, unspecified; M79.661 Pain in right lower leg; M79.662 Pain in left lower leg
CPT/HCPCS: 95885; 95911

== ENCOUNTER → 2025-06-05 15:21 | Outpatient (BNV) | payer BC, SELFPAY | PROVIDERS: PCP Internal Medicine; Visit Provider Psychiatry & Neurology Neurology | DX: G62.89 Other specified polyneuropathies (principal) | CPT/HCPCS: 95885; 95911 ==

== ENCOUNTER 2025-06-20 12:51 | Outpatient (AMB) | payer BC, SELFPAY ==
--- OUTSIDE RECORDS SUMMARY | 2025-02-27 02:40 | XMS_ITS ---
Author Organization [employer] [facility] Address [address] [place] [address] Care Team Providers Care Manager Of Learning Name Role Phone KARI, CLEOPATRA Primary Care Provider [phone] ALLERGIES No Known Allergies REASON FOR VISIT 36/f/u labs/ CT scan MEDICATIONS Medication SIG (Take, Route, Frequency, Duration) Notes Start Date End Date Status Rosuvastatin Calcium 10 MG 1 tablet Oral ly Once a day for 90 day(s) 02/27/2025 Active Rosuvastatin Calcium 20 MG 1 tablet Oral ly Once a day for 30 day(s) 12/19/2024 Active Metoprolol Tartrate 50 MG 1 tablet with food Orally Twice a day for 30 day(s) 12/19/2024 Active QUEtiapine Fumarate 25 MG 1 tablet at be dtime Orally Once a day for 30 day(s) 02/23/2025 Active amLODIPine Besylate 5 MG 1 tablet Orally Once a day for 30 day(s) 02/27/2025 Active Lisinopril 10 MG 1 tablet Orally Once a day for 30 day(s) 12/19/2024 Active PROBLEMS Problem Type ICD Code Onset Dates Problem Status W/U Status Risk SNOMED Code Notes Problem Cerebrovascular disease (I67.9) Active confirmed [id number] VITAL SIGNS Height 65 in 02/27/2025 Weight 176 lbs 02/27/2025 Blood pressure systolic 172 mm Hg 02/28/20 25 Blood pressure diastolic 90 mm Hg 025 BMI 29.28 kg/m2 02/27/2025 Encounters Encounter Location Date Provider Diagnosis [facility] [address] [place] [address] 02/27/2025 CLEOPATRA PIERCE Cerebrovascular dise ase I67.9 ; Irritability R45.4 ; Forgetfulness R68.89 and Elevated blood pressure reading with diagnosis of hypertension I10 ASSESSMENTS Encounter Date Diagnosis Assessment Notes Treatment Notes Treatment Clinical Notes Section Notes 02/27/2025 Cerebrovascular disease (ICD-10 - I67.9) quetiapine seemed to help some 02/27/2025 Irritability (ICD-10 - R45.4) continues quetiapine 1-2 at night and will update me in a week quetiapine seemed to help some 02/27/2025 Forgetfulness (ICD-10 - R68.89) he will be seeinbg neurologyin Octob quetiapine seemed to help some 02/27/2025 Elevated blood pressure reading with diagnosis of hypertension (ICD-10 - I10) continue lisinopril 10mg/d and 2 BPs [facility] in a week quetiapine seemed to help some PLAN OF TREATMENT Medication Medication Name Sig Start Date Stop Date Notes Rosuvastatin Calcium 10 MG 1 tablet Oral ly Once a day for 90 day(s) 02/27/2025 amLODIPine Besylate 5 MG 1 tablet Orally Once a day for 30 day(s) 02/27/2025 Treatment Notes Assessment Notes Irritability continues quetiapine 1-2 at night and will update me in a week Forgetfulness he will be seeinbg n eurologyin Octob Elevated blood pressure read ing with diagnosis of hypertension continue lisinopril 10mg/d and [facility] week Next Appt Details Follow Up: 4 Weeks, Reason: Provider Name:ANABEL BRYNDESI PERSAUD, 06/29/2025 09:40:00 AM, [address] [place], [address], History and Physical Notes * HPI (History of Present Illness) Category Sub-Category Detail Notes Category Not es General f/u hx HTN On lisinopril 10mg/d; He states his tries to serve healthy diiet with reduced processed . Not taking statin. He has been on quetiapine x 3 days and his thinks sleep better past 2 nights. Physical Examination Category Sub-Category Detail Notes Section Note s CHEST Breath sounds: clear to auscultation MRI brain with small vessel ischemic changes; BP repeat 160/88 left arm HEART Rhythm: regular MRI brain with small vessel ischemic changes; BP repeat 160/88 left arm Heart sounds: Normal S1 & S2, no S 3/S4 NEUROLOGICAL Motor: 5/5 strength proximally and distally in all 4 extremities MRI brain with small vessel ischemic changes; BP repeat 160/88 left arm Gait: normal Mental status: Alert and oriented t o person, place, time Tremor: none Speech normal GENERAL General Appearance: well nourish ed, no apparent distress, ; asked President Panda january . 100 minus 7 23 Speech cleqar Cooperates with exam . Eyes close able to follow instruction , left index finger to nose correctly; his Alba at the visit MRI brain with small vessel ischemic changes; BP repeat 160/88 left arm PSYCHOLOGY Grooming: appropriate MRI brain with small vessel ischemic changes; BP repeat 160/88 left arm Eye contact: normal Mood: pleasant Affect appropriate
--- OUTSIDE RECORDS SUMMARY | 2025-03-23 06:34 | XMS_ITS ---
Author Organization [facility] Address [address] [place] [address] Care Team Providers Care Hospital Cna Name Role Phone CLEOPATRA PIERCE Primary Care Provider REASON FOR VISIT Appt RS'd Encounters Encounter Location Date Provider Diagnosis [facility] [address] [place] [address] [place] [address] 03/23/2025 CLEOPATRA PIERCE PLAN OF TREATMENT Next Appt Details Provider Name:ANABEL PERSAUD, 06/29/2025 09:40:00 AM, [address] [place], [address],
--- OUTSIDE RECORDS SUMMARY | 2025-03-27 02:40 | XMS_ITS ---
Author Organization [facility] Address [address] [place] [phone] Care Team Providers Care Solvent Recoverer Name Role Phone CLEOPATRA PIERCE Primary Care Provider REASON FOR VISIT 36/4wk f/u Encounters Encounter Location Date Provider Diagnosis [address] [address] 03/27/2025 CLEOPATRA PIERCE PLAN OF TREATMENT Next Appt Details Provider Name:ANABEL PERSAUD, 06/29/2025 09:40:00 AM, [address] [place], [address],
--- OUTSIDE RECORDS SUMMARY | 2025-04-02 07:16 | XMS_ITS ---
Author Organization [facility] Address [address] [place] [address] Care Team Providers Care Headwaitress Name Role Phone CLEOPATRA PIERCE Primary Care Provider [phone] REASON FOR VISIT cognitive issues Encounters Encounter Location Date Provider Diagnosis [facility] [address] [place] [address] 04/02/2025 CLEOPATRA PIERCE PLAN OF TREATMENT Next Appt Details Provider Name:ANABEL PERSAUD, 06/29/2025 09:40:00 AM, [address] [place], [address],
--- OUTSIDE RECORDS SUMMARY | 2025-04-05 08:44 | XMS_ITS ---
Author Organization [facility] Address [address] [place] [phone] Care Team Providers Care Machine Icer Name Role Phone CLEOPATRA PIERCE Primary Care Provider REASON FOR VISIT Requesting Lab Orders/ Swollen Feet Encounters Encounter Location Date Provider Diagnosis [address] [address] 04/05/2025 CLEOPATRA PIERCE PLAN OF TREATMENT Next Appt Details Provider Name:ANABEL PERSAUD, 06/29/2025 09:40:00 AM, [address] [place], [address],
--- OUTSIDE RECORDS SUMMARY | 2025-04-09 04:40 | XMS_ITS ---
Author Organization [facility] Address [address] [place] [address] Care Team Providers Care Solar Maintenance Technician Name Role Phone KARI, CLEOPATRA Primary Care Provider [phone] JUANANABEL Valencia Unavailable [phone] ALLERGIES No Known Allergies REASON FOR VISIT [...] Notes Problem Tinnitus, bilateral (H93.13) Active confirmed [id number] Problem Neuropathy (G62.9) Active confirmed 199052887 VITAL SIGNS Height 65 in 04/09/2025 Weight 178.4 lbs 04/09/2025 Blood pressure systolic 134 mm Hg 04/09/20 25 Blood pressure diastolic 84 mm Hg 025 BMI 29.68 kg/m2 04/09/2025 Encounters Encounter Location Date Provider Diagnosis [facility] [address] [place] [address] 04/09/2025 ANABEL JOHN History of sleep apnea [...] eval; he is going to go to [facility] to have this done 04/09/2025 Other I [...] as tolerated Tinnitus, bilateral advised to get [facility] ed audiology eval; he is going to go to [facility] to have this done Other I am seeing the pee ent under the supervision of the co-signing physician. The physician was available for consultation at the time of the office visit. Next Appt Details Follow Up: prn, Reason: Provider Name:ANABEL PERSAUD, 06/29/2025 09:40:00 AM, [address] [place], [address], History and Physical Notes * HPI (History [...]
--- OUTSIDE RECORDS SUMMARY | 2025-04-09 09:16 | XMS_ITS ---
Author Organization [facility] Address [address] [place] [address] Care Team Providers Care Field Service Coordinator Name Role Phone KARI, CLEOPATRA Primary Care Provider ANABEL LOPEZ [phone] REASON FOR VISIT home sleep study Encounters Encounter Location Date Provider Diagnosis [facility] [address] [place] [phone] 04/09/2025 ANABEL LOPEZ History of sleep apnea Z86.69 ASSESSMENTS Encounter Date Diagnosis Assessment Notes Treatment Notes Treatment Clinical Notes Section Notes 04/09/2025 History of sleep apnea (ICD-10 - Z86.69) PLAN OF TREATMENT Pending Test Test Name Order Date Sleep Study (Home) 04/09/2025 Next Appt Details Provider Name:ANABEL PERSAUD, 06/29/2025 09:40:00 AM, [address] [place] [address], [address],
--- OUTSIDE RECORDS SUMMARY | 2025-04-10 10:58 | XMS_ITS ---
Author Organization [facility] Address [address] [place] [address] Care Team Providers Care Poultry Picker Name Role Phone CLEOPATRA PIERCE Primary Care Provider [phone] REASON FOR VISIT f/u on letter Encounters Encounter Location Date Provider Diagnosis [facility] [address] [place] [address] [place] [address] 04/10/2025 CLEOPATRA PIERCE PLAN OF TREATMENT Next Appt Details Provider Name:ANABEL PERSAUD, 06/29/2025 09:40:00 AM, [address] [place], [address],
--- OUTSIDE RECORDS SUMMARY | 2025-05-14 05:40 | XMS_ITS ---
Author Organization [facility] Address [address] [place] [address] Care Team Providers Care Career Development Engineer Name Role Phone KARI, CLEOPATRA Primary Care Provider REASON FOR VISIT 4 wk follow up MEDICATIONS Medication SIG (Take, Route, Frequency, Duration) Notes Start Date End Date Status Rosuvastatin Calcium 20 MG 1 tablet Oral ly Once a day for 30 day(s) Active amLODIPine Besylate 5 MG 1 tablet Orally Once a day for 30 day(s) 02/27/2025 Active QUEtiapine Fumarate 25 MG TAKE 1 TABLET BY MOUTH EVERY DAY AT BEDTIME FOR 30 DAYS for 30 Active Metoprolol Tartrate 50 MG 1 tablet with food Orally Twice a day for 30 day(s) 12/19/2024 Active Rosuvastatin Calcium 10 MG 1 tablet Oral ly Once a day for 90 day(s) 02/27/2025 Active Gabapentin 100 MG 1 capsule at bedtime Orally Once a day for 30 day(s) 04/09/2025 Active Lisinopril 10 MG 1 tablet Orally Once a day for 30 day(s) 12/19/2024 Active PROBLEMS Problem Type ICD Code Onset Dates Problem Status W/U Status Risk SNOMED Code Notes Problem Alzheimer's disease with early onset (G30.0) Active confirmed 82549230 Problem Dementia in other diseases classified elsewhere, moderate, without behavioral disturbance, psychotic disturbance, mood disturbance, and anxiety (F02.B0) Active confirmed 932464185 Problem History of alcohol abuse (F10.11) Active confirmed 7508656950 VITAL SIGNS Height 65 in 05/14/2025 Weight 178.5 lbs 05/14/2025 Blood pressure systolic 120 mm Hg 05/14/20 25 Blood pressure diastolic 78 mm Hg 025 BMI 29.70 kg/m2 05/14/2025 Encounters Encounter Location Date Provider Diagnosis [facility] [address] [place] [address] 05/14/2025 CLEOPATRA PIERCE Alzheimer's disease with early onset G30.0 ; Dementia in other diseases classified elsewhere, moderate, without behavioral disturbance, psychotic disturbance, mood disturbance, and anxiety F02.B0 and History of alcohol abuse F10.11 ASSESSMENTS Encounter Date Diagnosis Assessment Notes Treatment Notes Treatment Clinical Notes Section Notes 05/14/2025 Alzheimer's disease with early onset (ICD-10 - G30.0) continues donepazil seems to be doing better on quetiapine but needs to stop drinking alcohol 05/14/2025 Dementia in other diseases classified elsewhere, moderate, without behavioral disturbance, psychotic disturbance, mood disturbance, and anxiety (ICD-10 - F02.B0) improve irritabilty on quetiapine , needs to stopp alcohol, discussed. His relatives are chipping in to provide 24/7 support at home. seems to be doing better on quetiapine but needs to stop drinking alcohol 05/14/2025 History of alcohol abuse (ICD-10 - F10.11) advised to stop drinking; we discussed savida and camila; given referral copy form to [facility] substance abuse clinic [facility] with their contact office information/ w e will fax this not and the nurology note and also the brain imaging reports with the referral to [facility]. seems to be doing better on quetiapine but needs to stop drinking alcohol PLAN OF TREATMENT Treatment Notes Assessment Notes Alzheimer's disease with early onset con tinues donepazil Dementia in other diseases c lassified elsewhere, moderate, without behavioral disturbance, psychotic disturbance, mood disturbance, and anxiety improve irritabilty on quetiapine , need s to stopp alcohol, discussed. His relatives are chipping in to provide 24/7 support at home. History of alcohol abuse advised to stop drinking; we discussed savida and adcare; given referral copy form to [facility] substance abuse [facility] with their contact office information/ w e will fax this not and the nurology note and also the brain imaging reports with the referral to [facility]. Next Appt Details Follow Up: 6 Weeks Zina Bartholomew: Provider Name:ANABEL PERSAUD, 06/29/2025 09:40:00 AM, [address] [facility], [place], [address], History and Physical Notes * HPI (History of Present Illness) Category Sub-Category Detail Notes Category Not es General f/u dementia, , neuropathy State s he saw neurology, and brother Junior with him Junior's brother in law Quang Jain was at neurology visit Dr Ellis. Dx alzheimer dementia. I reviewed the neurology consult report, Dr Ellis , they had copy of report and we reviewed it at visit Dx Alzheimer dementia and neurology did not advise any new measures. Junior notes brother reduced alcohol. Their mother has alzheimer dz. States sleep improved on quetiapine per Siddhartha over short period of time . Per Junior there are converations about Siddhartha being in. He is a vet. His is working and a son who is in highschool graduated and watcheshim and there sibling x 5 trying to help out. Drinking vodka on frid , saturd Physical Examination Category Sub-Category Detail Notes Section Note s HEENT Head: normocephalic, atraumatic y r 2027May . Town he lives in [place] . States he is in [place] now. EXTREMITIES Edema: none yr 2027 [facility] May . Town he lives in [place] . States he is in [place] now. CHEST Breath sounds: clear to auscultation 2027May . Town he lives in [place] . States he is in [place] now. HEART Rhythm: regular yr 2027 [facility] May . Town he lives in [place] . States he is in [place] now. NEUROLOGICAL Motor: 5/5 strength pro ximally and distally in all 4 extremities 2027May . Town he lives in [place] . States he is in [place] now. Gait: normal, get on off t able readily when instructed Mental status: Alert and oriented t o person, place, , His brother Junior with him Cerebellar: stedy Speech normal GENERAL General Appearance: well nourish ed, no apparent distress, well developed yr 2027May . Town he lives in [place] . States he is in [place] now.
--- OUTSIDE RECORDS SUMMARY | 2025-05-14 11:23 | XMS_ITS ---
Author Organization [facility] Address [address] [place] [address] Care Team Providers Care Prop Sawyer Name Role Phone CLEOPATRA PIERCE Primary Care Provider [phone] REASON FOR VISIT pt declined services Encounters Encounter Location Date Provider Diagnosis [facility] [address] [place] [address] 05/14/2025 CLEOPATRA PIERCE PLAN OF TREATMENT Next Appt Details Provider Name:ANABEL PERSAUD, 06/29/2025 09:40:00 AM, [address] [place], [address],
--- NOTE | 2025-06-20 13:04 | MHC.OFFVIS ---
Intake Visit Reasons: 6 weeks Medication List - Last Reconciled 06/20/25 by Cody Pete MD amlodipine 5 mg PO DAILY donepezil 10 mg PO DAILY gabapentin 100 mg PO TID gabapentin 300 mg PO BEDTIME lisinopril 10 mg PO DAILY metoprolol succinate ER 50 mg PO BID quetiapine 25 mg PO DAILY rosuvastatin 20 mg PO DAILY rosuvastatin 10 mg PO DAILY HPI Comments Details: This is a 65-year-old right-handed man who is here accompanied by his and his [id number]. For the last 6-12 months he has had significant cognitive decline and was let go from [employer] where he had worked for 35 years because of errors he had been making for about 6 months. In the last 6 months he has continued to deteriorate cognitively. He runs around the house sometimes watching TV mumbling and humming to himself. He can no longer use the remote control or the cell phone and gets easily confused. He forgets names of family members they are ages in relationship. He takes things out of the cupboard and puts them on the counter and remedies through the Fridge and leaves the kitchen Fridge door open leaves the sink on and sometimes the stove. He thinks that characters on television no real people. He called his sister his mother has increased confusion and sundowning at night and talks about his father that he is going to pick him up. The father passed with 13 years ago. He confuses the past and present. He puts food away in different locations in the house. He used to drink heavily but has cut down and he still smokes. He has a history of hypertension and hyperlipidemia. He also complains of 6 months trouble sleeping because of burning and painful feet. He is scheduled to see a generator rebuilder and is also scheduled for a sleep study for sleep apnea. The patient is unable to provide any useful information and appears to have fairly advanced dementia. Had a couple of episodes of paranoia . [facility] Medical History (Updated 06/20/25 @ 13:16 by Cody Pete MD) Basal cell carcinoma Heart attack LELAND (obstructive sleep apnea) Hypercholesteremia Type 2 diabetes mellitus Iritis Insomnia Obesity HTN (hypertension) Family History (Updated 05/07/25 @ 14:42 by ELENA Snowden) Father Heart disease Mother Memory loss Sister Seizure Review of Systems Const Details: Significant cognitive decline, confusion disorientation sundowning loss of track of time. Burning sensation in both feet. Musc Reports tingling Neuro Reports confusion, Reports memory loss, Reports tingling and Reports paresthesias Psych Reports confusion and Reports memory loss Physical Exam Const General: confusion Orientation/consciousness: confusion Neuro Other: He is oriented to person only. He knows it is 2024 but was not sure if it was April or May. He does not know the day of the week. He could not accurately tell me what his 2 sons do or their ages. He thinks he is 53 years old instead of 65. He remembers his date of . He is unable to subtract 7 from 100. He is unable to imprint 3 objects successfully usually being able to do only 2. He has some perseveration. His 3 minute recall was 1/3. He is unable to draw a clock face. His MMS score is 15/30 Cranial nerves 2-12 are normal. Muscle tone and strength are normal reflexes hypoactive at the ankles plantar responses flexor. Some subjective sensory blunting in his feet. Gait and balance are normal. General: confusion Assessment & Plan Assessment & Plan (1) Peripheral neuropathy: Comment: NCV: Tlug-go-xoekmkvv sensory axonal loss in the lower extremities with borderline slow motor nerve conductions suggestive of early, predominantly sensory peripheral neuropathy. EMG of the left L4-S1 innervated muscles consistent with mild chronic distal neuropathic change in in the EDB muscle. Code(s): G62.9 - Polyneuropathy, unspecified Category: Medical (2) Alzheimer's disease: Comment: Fairly advanced dementia. Labs normal. Code(s): G30.9 - Alzheimer's disease, unspecified; F02.80 - Dementia in other diseases classified elsewhere, unspecified severity, without behavioral disturbance, psychotic disturbance, mood disturbance, and anxiety Category: Medical Plan Increase Donepezil to 10mg hs . Increase daytime Gabapentin 100mg tid . On next visit will add Memantine Medications: New donepezil 10 mg PO DAILY 30 tabs 5RF 30 days Changed From gabapentin 100 mg PO TID To gabapentin 100 mg PO TID 90 caps 5RF 30 days Coding Level of Care Code Est Pt Level 4 (47171) Diagnoses Peripheral neuropathy G62.9 Alzheimer's disease G30.9; F02.80
--- OUTSIDE RECORDS SUMMARY | 2025-06-20 15:13 | XMS_ITS | Clinical Summary ---
Author Organization [facility] Prior to 12/16/[address] [place] [address] Care Team Providers Care Corrections Corporal Name Role Phone Unavailable Primary Care Provider Unavailabl e Social History Tobacco Use Types Packs/Day Years Used Date Smoking Tobacco: Never Assessed Sex and Gender Information Value Date Recorded Sex Assigned at Not on file Gender Identity Not on file Sexual Orientation Not on file Plan of Treatment Not on file
--- OUTSIDE RECORDS SUMMARY | 2025-06-20 15:16 | XMS_ITS | Clinical Summary ---
Author Organization [facility] it Address [address] [place] [address] Care Team Providers Care Cost Estimating Clerk Name Role Phone Unavailable Primary Care Provider [...]
--- OUTSIDE RECORDS SUMMARY | 2025-06-20 15:16 | XMS_ITS | Patient Health Record ---
Author Organization [facility] Address [address] [place] [address] Care Team Providers Care Application Project Leader Name Role Phone CLEOPATRA PIERCE Primary Care Provider JOS LIM Unavailable [phone] ANABEL LOPEZ Unavailable [phone] ALLERGIES No Known Allergies REASON FOR REFERRAL Reason 64 yr old male with forgetfullness, word finding difficulty over past 5-6 month Diagnosis 1 Forgetfulness (R68.8 9) Diagnosis 2 Word finding difficu lty (R47.89) Referral Organization [facility] Referring Provider First Name CLEOPATRA [...] and notes have also been faxed to [phone], No Insurance Referral is needed as the patient is self pay, Karie SINGH Referrals 02/26/2025 10:41:16 AM > the patient now has BC, ID:[id number], Preferred Provider Organization ([facility]), referral faxed to BOBBY at [phone] Referral Priority Urgent Reason 65 yr old male with hx alcohol abuse an early dementia Please see Diagnosis 1 Alcohol abuse (F10.1 0) Referral Organization [facility] Referring Provider First Name CLEOPATRA Referring Provider Last Name KARI Referring Provider Speciality Internal M edicine General Notes CLEOPATRA PIERCE 2024 11:01:24 AM > [facility] [place] [place] Ref[facility] Priority Routine MEDICATIONS Medication SIG [...] Active confirmed Diabetes me llitus type II (15055738) Problem HTN [Hypertension] (401.9) Active confirmed Essential hypertension (43093973) Problem Ischemic heart disease NOS (414.9) Active confirmed Ischemic heart disease (567156356) Problem Sleep apnea (786.09) Active confirmed S leep apnea (62019799) Problem Transaminasemia (790.4) Active confirmed Temporary loss of memory (finding) (922602103) Problem Hypercholesterolemia (272.0) Active confirmed Hypercholestero lemia (48229136) Problem OBESITY NOS (278.00) Active confirmed O besity (037626172) Problem ELBOW ENTHESOPATHY NOS (726.30) Active confirmed Enthesopathy of elbow region (07221981) Problem Insomnia (G47.00) Active confirmed 193 15233 Problem Vitamin D deficiency (E55.9) Active confirmed 15381051 Problem Hypercholesterolemia (E78.0) Active confirmed 85794914 Problem Nevus (D22.9) Active confirmed 12931384 Problem Obesity (E66.9) Active confirmed 031643 001 Problem Transaminasemia (R74.0) Active confirmed 027681734 Problem Paresthesia (R20.2) Active confirmed 91 617737 Problem LELAND (obstructive sleep apnea) (G47.33) Active confirmed 50077186 Problem Alcohol abuse (F10.10) Active confirmed 51994257 Problem Neuropathy (G62.9) Active confirmed 386 033931 Problem Type 2 diabetes mellitus with hyperglycemia (E11.65) Active confirmed 86485451 Problem Alzheimer's disease with early onset (G30.0) Active confirmed 16826159 Problem Other insomnia (G47.09) Active confirmed 632743689 Problem Tinnitus, bilateral (H93.13) Active confirmed 4615981121093 Problem Coronary artery disease involving [place] coronary artery of [place] heart without angina pectoris (I25.10) Active confirmed 97296775 Problem Impotence (N52.9) Active confirmed 3978 73671 Problem Ischemic heart disease (I25.9) Active confirmed 314022502 Problem Macrocytosis (D75.89) Active confirmed 409903209 Problem Folic acid deficienc y (E53.8) Active confirmed 088055818 Problem Iritis (H20.9) Active confirmed 8334282 0 Problem SCCA (squamous cell carcinoma) of skin (C44.92) Active confirmed 012212474 Problem Cerebrovascular disease (I67.9) Active confirmed 55610342 Problem Erectile dysfunction , unspecified erectile dysfunction type (N52.9) Active confirmed 067289418 Problem Elevated cholesterol (E78.00) Active confirmed Pure hypercholesterolemia (597419770) Problem Elevated blood pressure reading with diagnosis of hypertension (I10) Active confirmed 14016436 Problem History of alcohol abuse (F10.11) Active confirmed 6234193956 Problem Dementia in other diseases classified elsewhere, moderate, without behavioral disturbance, psychotic disturbance, mood disturbance, and anxiety (F02.B0) Active confirmed 677371155 VITAL SIGNS Blood pressure diastolic 78 mm Hg 05/14/2025 Height 65 in 05/14/2025 Blood pressure systolic 120 mm Hg 05/14/2025 Weight 178.5 lbs 05/14/2025 BMI 29.70 kg/m2 05/14/2025 Encounters Encounter Location Date Provider Diagnosis [address] [address] 11/09/2024 JOS LIM [place] [phone] 11/27/2024 CLEOPATRA PIERCE [place] [id number] 11/28/2024 CLEOPATRA PIERCE [address] [address] 11/28/2024 CLEOPATRA PIERCE [place] [phone] 12/19/2024 CLEOPATRA PIERCE Cognitive impairment R41.89 ; Screening for deficiency anemia Z13.0 ; Elevated blood pressure reading with diagnosis of hypertension I10 ; Coronary artery disease involving [place] coronary artery of [place] heart without angina pectoris I25.10 ; Abnormal EKG R94.31 and Noncompliance Z91.[address] [address] 01/01/2025 CLEOPATRA PIERCE [address] [address] 01/02/2025 CLEOPATRA PIERCE [facility] [address] [place] [phone] 01/25/2025 CLEOPATRA PIERCE [facility] [address] [place] [phone] 01/30/2025 CLEOPATRA PIERCE Forgetfulness R68.89 and Word finding difficulty R47.89 [facility] [address] [place] [address] 02/23/2025 CLEOPATRA PIERCE Other insomnia G47.0 9 and Irritability R45.4 [facility] [address] [place] [phone] 02/27/2025 CLEOPATRA PIERCE Cerebrovascular disease I67.9 ; Irritability R45.4 ; Forgetfulness R68.89 and Elevated blood pressure reading with diagnosis of hypertension I10 [facility] [address] [place] [phone] 03/23/2025 CLEOPATRA PIERCE [facility] [address] [place], [place] [phone] 03/27/2025 CLEOPATRA PIERCE [facility] [address] [place] [address] 04/02/2025 CLEOPATRA PIERCE [facility] [address] [place], [place] [phone] 04/05/2025 CLEOPATRA PIERCE [facility] [address] [place] [address] 04/09/2025 ANABEL LOPEZ History of sleep guardian ad litem ea Z86.69 ; Neuropathy G62.9 and Tinnitus, bilateral H93.13 [facility] [address] [place], [place] [id number] 04/09/2025 ANABEL LOPEZ History of sleep guardian ad litem ea Z86.69 [facility] [address] [place], [place] [id number] 04/10/2025 CLEOPATRA PIERCE [facility] [place] [id number] 05/14/2025 CLEOPATRA PIERCE Alzheimer's disease with early onset G30.0 ; Dementia in other diseases classified elsewhere, moderate, without behavioral disturbance, psychotic disturbance, mood disturbance, and anxiety F02.B0 and History of alcohol abuse F10.11 [facility] [address] [place] [address] 05/14/2025 CLEOPATRA PIERCE ASSESSMENTS Encounter Date Diagnosis [...] copy form to [facility] Rach Mart[facility]nez with their contact office information/ rach garcia will fax this not and the nurology [...] eval; he is going to go to [facility] to have this done 12/19/2024 Elevated blood pressure reading with diagnosis of hypertension (ICD-10 - I10) not on his meds 02/27/2025 Elevated blood pressure reading with diagnosis of hypertension (ICD-10 - I10) continue lisinopril 10mg/d and 2 BPs [facility] a week quetiapine seemed to help some 12/19/2024 Coronary artery disease involving [place] coronary artery of [place] heart without angina pectoris (ICD-10 - I25.10) [...] Name:ANABEL CORMIER HUNG, 06/29/2025 09:40:00 AM, [address] [place], [address], Insurance Providers Payer Name Payer Address Payer Phone Subscriber Number Group Number Insured Name Patient Relationship to Insured Coverage Start Date Coverage End Date [employer] [address] [place] [address] [id number] FRANCO HARRISON Self - patient is the insured 5 MEDICAL (GENERAL) HISTORY Medical History History ICD Code hypertension obesity insomnia iritis diabetes mellitus, type 2 hypercholesterolemia [facility] 11/01/11 right SCCA Dementia Alzheimers Surgical History Surgery Date(Month/Year) Basal Cell Carcinoma 02/2019 Hospitalization History Reason Date(Month/Year) myocardial infarct - [facility] 08/05/2009 chest pain s/p stent x 2 for [facility] 11/01/11 [facility] Dx: Hypoglycemia Nausea Decreased ap petite 06/17/16
== END 2025-06-20 13:20 | disposition home or self-care (01) ==
LOC: HO.HSM 12:52
PROVIDERS: PCP Internal Medicine; Visit Provider Psychiatry & Neurology Neurology
DX: G62.9 Polyneuropathy, unspecified (principal); G30.9 Alzheimer's disease, unspecified; F02.80 Dementia in other diseases classified elsewhere, unspecified severity, without behavioral disturbance, psychotic disturbance, mood disturbance, and anxiety
CPT/HCPCS: 99214